=== PATIENT | female | born 1940 | race Caucasian/White ===

== ENCOUNTER 2023-12-31 12:12 | Inpatient (IN) ==
[2023-12-31] MEDS: IPRATROPIUM/ALBUTEROL 3 ML AMPUL.NEB NEB ONE ×3 (12:42→14:18)
[2023-12-31 12:48] LABS: Basophils # (Auto) 0.07 K/mcL (0.00-0.30); Eosinophils # (Auto) 0.12 K/mcL (0.00-0.70); Eosinophils % (Auto) 1.8 % (0.0-7.0); Hematocrit 26.7 % (34.1-44.9); Hemoglobin 8.2 g/dL (11.2-15.7); Lymphocytes # (Auto) 0.51 K/mcL (1.50-4.80); Lymphocytes % (Auto) 7.5 % (15.5-49.0); Mean Cell Volume 90.5 fL (80.0-100.0); Mean Corpuscular HGB Conc 30.7 g/dL (31.0-36.0); Mean Platelet Volume 8.9 fL (8.8-12.5); Monocytes # (Auto) 0.89 K/mcL (0.10-0.90); Neutrophils % (Auto) 76.6 % (38.0-78.0); Platelet Count 500 K/mcL (140-440); RBC 2.95 M/mcL (3.59-5.38); Red Cell Distribution Width 16.5 % (11.5-14.5); WBC 6.8 K/mcL (4.5-11.0)
[2023-12-31 13:01] LABS: ALT/SGPT 29 U/L (<40); AST/SGOT 30 U/L (<32); Albumin 3.8 gm/dL (3.2-5.2); Albumin/Globulin Ratio 1.1 (1.0-2.3); Alkaline Phosphatase 106 U/L (39-117); Bilirubin,Total 0.4 mg/dL (0.1-1.0); Blood Urea Nitrogen 16 mg/dL (8-23); Calcium 9.6 mg/dL (8.6-10.4); Carbon Dioxide 27 mmol/L (22-30); Chloride 95 mmol/L (96-108); Globulin 3.6 gm/dL (2.2-3.7); Glomerular Filtration Rate 52; Glucose 121 mg/dL (70-105)
[2023-12-31] MEDS: FUROSEMIDE 100 MG/10 ML VIAL IV ONE (13:30)
[2023-12-31] MEDS: LEVOFLOXACIN 750 MG/150 ML BAG IV ONE (13:38)
[2023-12-31] MEDS: FUROSEMIDE 40 MG/4 ML VIAL IV ONE (13:47)
[2023-12-31 13:57] LABS: Thyroid Stimulating Hormone 3.16 uIU/mL (0.27-5.01)
[2023-12-31 14:40] LABS: Free T4 (Free Thyroxine) 1.82 ng/dL (0.93-1.70)
[2023-12-31 17:42] LABS: ABG Methemoglobin 0.2 % (0.4-1.5); VBG Base Excess 6 (-2-3); VBG HCO3 31.1 mmol/L (24.0-28.0); VBG Oxygen Saturation 84.2 % (40.0-70.0); VBG PCO2 46.7 mmHg (41.0-51.0); VBG PH 7.44 U (7.32-7.42); VBG PO2 58.6 mmHg (25.0-40.0); VBG Total CO2 32.6 mmol/L (25.0-29.0)
[2023-12-31] MEDS ORDERED: ALBUTEROL SULFATE 60 PUFF INHALER INH PRN (19:09)
[2023-12-31] MEDS ORDERED: IPRATROPIUM/ALBUTEROL 3 ML AMPUL.NEB NEB PRN (19:09)
[2023-12-31] MEDS ORDERED: ONDANSETRON 4 MG/2 ML VIAL IV PRN (19:12)
[2023-12-31] MEDS ORDERED: ACETAMINOPHEN 325 MG TABLET PO PRN (19:12)
[2023-12-31] MEDS ORDERED: traZODone HCL 50 MG TABLET PO PRN (19:12)
[2023-12-31] MEDS: IPRATROPIUM/ALBUTEROL 3 ML AMPUL.NEB NEB SCH (20:17)
[2023-12-31] MEDS: METOPROLOL TARTRATE 25 MG TABLET PO SCH (22:03)
[2023-12-31] MEDS: APIXABAN 5 MG TABLET PO SCH (22:04)
[2023-12-31] MEDS: SENNOSIDES 1 TABLET PO SCH (22:04)
[2023-12-31] MEDS: AZITHROMYCIN 250 MG TABLET PO SCH (22:04)
[2023-12-31] MEDS: FLUTICASONE HFA 220MCG INHALER INH SCH (22:04)
[2023-12-31] MEDS: 0.9 % SODIUM CHLORIDE 10 ML SYRINGE IV SCH (22:04)
[2023-12-31] MEDS: DOCUSATE SODIUM 100 MG CAPSULE PO SCH (22:04)
[2023-12-31] MEDS: methylPREDNISolone SOD SUCC 40 MG/ML VIAL IV SCH (22:07)
[2024-01-01 06:19] LABS: Basophils # (Auto) 0.04 K/mcL (0.00-0.30); Basophils % (Auto) 0.9 % (0.0-2.0); Eosinophils # (Auto) 0 K/mcL (0.00-0.70); Eosinophils % (Auto) 0 % (0.0-7.0); Hematocrit 24.2 % (34.1-44.9); Hemoglobin 7.5 g/dL (11.2-15.7); Lymphocytes % (Auto) 4.4 % (15.5-49.0); Mean Platelet Volume 8.9 fL (8.8-12.5); Monocytes # (Auto) 0.09 K/mcL (0.10-0.90); Neutrophils % (Auto) 92.3 % (38.0-78.0); Platelet Count 462 K/mcL (140-440); RBC 2.66 M/mcL (3.59-5.38); Red Cell Distribution Width 16.7 % (11.5-14.5); WBC 4.6 K/mcL (4.5-11.0)
[2024-01-01 06:45] LABS: ALT/SGPT 25 U/L (<40); AST/SGOT 30 U/L (<32); Albumin 3.5 gm/dL (3.2-5.2); Alkaline Phosphatase 93 U/L (39-117); Bilirubin,Total 0.3 mg/dL (0.1-1.0); Blood Urea Nitrogen 17 mg/dL (8-23); Calcium 9.2 mg/dL (8.6-10.4); Carbon Dioxide 30 mmol/L (22-30); Chloride 94 mmol/L (96-108); Globulin 3.5 gm/dL (2.2-3.7); Glomerular Filtration Rate 52; Glucose 138 mg/dL (70-105)
[2024-01-01] MEDS: FUROSEMIDE 40 MG/4 ML VIAL IV SCH ×2 (07:48→16:06)
[2024-01-01] MEDS: POTASSIUM CHLORIDE 20 MEQ TABLET PO SCH (07:48)
[2024-01-01] MEDS: LEVOTHYROXINE 50 MCG TABLET PO SCH (07:48)
[2024-01-01] MEDS: MULTIVIT,THER IRON,CA,FA & MIN 1 TABLET PO SCH (08:54)
[2024-01-01] MEDS: AMIODARONE HCL 200 MG TABLET PO SCH (08:54)
[2024-01-01] MEDS: LISINOPRIL 5 MG TABLET PO SCH (08:54)
[2024-01-01] MEDS: SPIRONOLACTONE 25 MG TABLET PO SCH (08:54)
[2024-01-02 06:55] LABS: Basophils # (Auto) 0.02 K/mcL (0.00-0.30); Basophils % (Auto) 0.2 % (0.0-2.0); Eosinophils # (Auto) 0 K/mcL (0.00-0.70); Eosinophils % (Auto) 0 % (0.0-7.0); Hematocrit 29.2 % (34.1-44.9); Hemoglobin 8.4 g/dL (11.2-15.7); Lymphocytes # (Auto) 0.39 K/mcL (1.50-4.80); Lymphocytes % (Auto) 4.3 % (15.5-49.0); Mean Cell Volume 97.7 fL (80.0-100.0); Mean Corpuscular HGB Conc 28.8 g/dL (31.0-36.0); Mean Platelet Volume 9.3 fL (8.8-12.5); Monocytes # (Auto) 0.68 K/mcL (0.10-0.90); Monocytes % (Auto) 7.5 % (1.0-12.0); Neutrophils % (Auto) 87.8 % (38.0-78.0); Platelet Count 478 K/mcL (140-440); RBC 2.99 M/mcL (3.59-5.38)
[2024-01-02 07:22] LABS: ALT/SGPT 20 U/L (<40); AST/SGOT 38 U/L (<32); Albumin 3.5 gm/dL (3.2-5.2); Albumin/Globulin Ratio 0.9 (1.0-2.3); Alkaline Phosphatase 93 U/L (39-117); Bilirubin,Total < 0.2 mg/dL (0.1-1.0); Blood Urea Nitrogen 30 mg/dL (8-23); Calcium 9.5 mg/dL (8.6-10.4); Carbon Dioxide 29 mmol/L (22-30); Chloride 92 mmol/L (96-108); Globulin 3.8 gm/dL (2.2-3.7); Glomerular Filtration Rate 47; Glucose 140 mg/dL (70-105)
== END 2024-01-02 15:03 | disposition home or self-care (01) | DRG 291 ==
LOC: ED 12:12 → MEDSUR 18:59
PROVIDERS: ADMIT Internal Medicine; ATTEND Internal Medicine